=== PATIENT | female | born 1970 | race Caucasian/White ===

== ENCOUNTER 2016-10-17 00:28 | Emergency (ER) | payer SELFPAY ==
[~2016-10-17] VITALS: Ht 166.4 cm; Wt 69.1 kg
[~2016-10-17 00:28] MED LIST: FLUT0.0529
[2016-10-17 00:34] VITALS: TEMP 36.8; Ht 166.4 cm; Wt 69.1 kg
[2016-10-17] MEDS ORDERED: KETOROLAC TROMETHAMINE 60 MG/2 ML VIAL IM STA (00:47)
--- NOTE | 2016-10-17 00:49 | EMERGENCY ROOM VISIT NOTE ---
History Report prepared by [place]: Cal Kelly Under the Supervision of: Dr. Sheila Marie D.O. First contact with patient: 00:37 Chief Complaint: ANKLE PAIN Stated Complaint: SEVERE PAIN IN LEFT ANKLE History of Present Illness The patient is a 46 year old female who presents to the Emergency Room with complaints of shooting, waxing/waning left ankle pain that began 1 month ago. The patient rates her pain a 10/10 in severity. The patient has had multiple past injuries to her left ankle over the years. Over the past month, she has been experiencing this pain shooting up her leg. She denies any pain in her calf , foot, or leg, her pain is just in her ankle. She states that the pain changes position day to day. She notes that the pain worsens the longer she stands on it. When she got home from work today, she began to use crutches, and she took a Naproxen. She denies any recent trauma to the area. She denies any fevers or abdominal pain. Source of History: patient Onset: 1 month ago Position: ankle (left) Symptom Intensity: 10/10 Quality: other (shooting) Timing: waxes/wanes Modifying Factors (Worsening): exertion Associated Symptoms: No abdominal pain, No fevers Note: She denies any other pain in her leg. Review of Systems See HPI for pertinent positives & negatives. A total of 10 systems reviewed and were otherwise negative. Past Medical & Surgical Medical Problems: (1) Bilateral tubal ligation (2) DRUG DEPEND NOS-EPISODIC (3) DRUG WITHDRAWAL (4) FAMILY HX-MALIGNANCY NOS (5) History of - tubal ligation (6) TOBACCO USE DISORDER (7) Tonsillectomy (8) TUBAL LIGATION STATUS Family History Cancer Social History Smoking Status: Current Every Day Smoker Drug Use: cocaine Marital Status: single Occupation Status: employed Current/Historical Medications No Active Prescriptions or Reported Meds Allergies Coded Allergies: Penicillins (Unverified Allergy, Unknown, HIVES, 10/17/16) Physical Exam Vital Signs Date Time Temp Pulse Resp B/P Pulse Ox O2 Delivery O2 Flow Rate FiO2 10/17/16 02:20 98 20 120/68 97 Room Air 10/17/16 00:34 36.8 110 20 122/75 95 Room Air Physical Exam Heart: Regular rate and rhythm. There is a normal S1 and S2 with no murmurs, clicks, or gallops appreciated. Lungs: Clear to auscultation bilaterally with no wheezes, rales, or rhonchi. Abdomen: Soft, completely nontender, nondistended, with good bowel sounds. There are no palpable pulsatile masses or hepatosplenomegaly. There is no guarding, rigidity, or rebound noted. Extremities: No evidence of cyanosis, clubbing, or edema. There are easily palpable peripheral pulses. Pain with palpation of the Achilles tendon on the left lower extremity. However there is no pain in that area with dorsiflexion and plantar flexion of the foot. Skin: warm and dry with good turgor and no rashes. Medical Decision & Procedures ER Provider Diagnostic Interpretation: X-ray results as stated below per interpretation by me: Left Ankle X-Ray: No obvious fracture. No joint effusion. Medications Administered Medications (Trade) Dose Ordered Sig/Odalys Route Start Time Stop Time Status Last Admin Dose Admin Ketorolac Tromethamine (Toradol Inj) 60 mg NOW STAT IM 10/17/16 00:47 10/17/16 00:48 DC 10/17/16 01:22 60 MG Oxycodone/ Acetaminophen (Percocet 5-325mg Tab) 1 tab NOW ONCE PO 10/17/16 01:00 10/17/16 01:01 DC 10/17/16 01:21 1 TAB Procedure Toradol Inj 60 mg IM Oxycodone/ Acetaminophen 1 tab PO ED Course 0037: Past medical records reviewed. The patient was evaluated in room A9. A complete history and physical exam was performed. The patient went for a plain film of the left ankle which was unremarkable. 0047: Ordered Toradol Inj 60 mg IM 0100: Ordered Oxycodone/ Acetaminophen 1 tab PO 0200: Upon reevaluation, the patient is resting. I discussed findings with her. She verbalized agreement of the treatment plan. She was discharged home. Medical Decision The patient is a 46 year old female who presents to the ED with ankle pain. Differential diagnosis includes gout, ankle sprain, arthritis, fracture, and septic joint. There is no erythema or edema surrounding the ankle. It was not warm to touch. The patient had some mild discomfort with palpation over the Achilles. She had no discomfort with plantar flexion or dorsiflexion of the foot. X-ray was unremarkable. She had significant relief of her pain after receiving Toradol and 1 Percocet. I've asked the patient to keep her foot elevated. She can use crutches to limit weightbearing. Impression Primary Impression: Achilles tendon pain Scribe Attestation The scribe's documentation has been prepared under my direction and personally reviewed by me in its entirety. I confirm that the note above accurately reflects all work, treatment, procedures, and medical decision making performed by me. Departure Information Dispostion Home / Self-Care Prescriptions No Active Prescriptions or Reported Meds Referrals No Doctor, Assigned (PCP) Forms HOME CARE DOCUMENTATION FORM, IMPORTANT VISIT INFORMATION Patient Instructions My [facility] Additional Instructions Rest with the left foot elevated. Use crutches when up and about tylenol or ibuprofen for pain Follow up with [facility] if pain persists
[2016-10-17] MEDS ORDERED: OXYCODONE/ACETAMINOPHEN 5-325 TAB PO ONE (01:00)
[2016-10-17 02:20] VITALS: BP 120/68; PULSE 98; O2SAT 97
--- NOTE | 2016-10-17 07:57 | DIAGNOSTIC IMAGING REPORT ---
LEFT ANKLE MIN 3 VIEWS ROUTINE CLINICAL HISTORY: Left ankle pain. COMPARISON: None FINDINGS: Alignment of the left ankle is anatomic. There is no acute fracture. There is mild osteophytosis of the tibiotalar joint. Talar dome is intact. IMPRESSION: 1. No acute fracture or dislocation of the left ankle. 2. Mild tibiotalar joint osteoarthritis. Electronically signed by: Raul Quiles M.D. 10/17/2016 7:55 AM Dictated Date/Time: 10/17/2016 7:54 AM
== END 2016-10-17 02:24 | disposition home or self-care (01) ==
LOC: C.EDB 00:29 → C.EDA 02:24
DX: M76.62 Achilles tendinitis, left leg (principal); F17.200 Nicotine dependence, unspecified, uncomplicated; Z98.51 Tubal ligation status; Z98.890 Other specified postprocedural states; Z88.0 Allergy status to penicillin; Z80.9 Family history of malignant neoplasm, unspecified

== ENCOUNTER 2017-07-04 20:47 | Emergency (ER) | payer OTHER ==
[~2017-07-04] VITALS: Ht 166.4 cm; Wt 61.5 kg
[2017-07-04 20:56] VITALS: TEMP 36.7; Ht 166.4 cm; Wt 61.5 kg
--- NOTE | 2017-07-04 21:32 | EMERGENCY ROOM VISIT NOTE ---
ED Visit Note First contact with patient: 21:00 CHIEF COMPLAINT: Right forearm injury at work 2 hours ago HISTORY OF PRESENT ILLNESS: Patient is a [id number] 47-year-old white female who presents to emergency department for evaluation of pain in the right forearm. She accidentally struck it on a counter at work about 2 hours ago. She applied ice for a short period of time, but continued to work. She states that she was unable to lift a coffee pot, and had to drive over here using her left hand only. She notes pain in the dorsal aspect of the mid right forearm where she struck it on the countertop. She rates her discomfort an 8/10. Pain does not radiate. She denies any wrist or elbow pain. There is no numbness of the hand or weakness of the fingers. REVIEW OF SYSTEMS: Review of systems as per HPI. All other systems reviewed were negative. At least 6 systems reviewed. PMH: Electronic medical records are reviewed and summarized as above/below. See Problem List. SOCIAL HISTORY: Patient lives at home. PHYSICAL EXAM: Vital Signs: Reviewed Nurse's notes. CONSTITUTIONAL: Patient is a well-appearing 38-year-old white female who is awake and alert and didn't no acute distress. She is writing with her right arm, filling out her medical questionnaire. MUSCULOSKELETAL: Examination of the right forearm note a small soft tissue indentation in the dorsal aspect of the mid forearm, where the patient is tender to palpation. There is no significant soft tissue swelling, no ecchymosis. No fracture crepitus or deformity. The skin is intact. Flexion and extension of the fingers is intact. Wrist range of motion is full, elbow range of motion is full although patient has some discomfort with supination. Sensation is intact on the dorsum of the forearm and hand The fingers are warm and well perfused. EMERGENCY DEPARTMENT COURSE: An X-ray of the right forearm was negative for acute fracture or bony abnormality. There was a soft tissue foreign body noted , however on repeat examination, patient's skin is completely intact, and mechanism of injury today is not consistent with any type of skin or soft tissue injury. The patient cannot recall any event that could have led to a retained foreign body. She does not have any skin injury to suspect puncture or laceration. No signs of infection. She does have a tattoo in this region, unsure if this is related or not. Conservative care measures were discussed regarding her forearm contusion. She can return to normal activity as tolerated. Differential diagnoses entertained included fracture, soft tissue injury, contusion, among others. R FOREARM 2 VIEWS ROUTINE CLINICAL HISTORY: 47 years-old Female presenting with RIGHT, EVAL FX. TECHNIQUE: Frontal and lateral views of the right forearm are obtained. COMPARISON: Correlation made to plain radiographs of the right elbow from 2011. FINDINGS: Elbow joint and radiocarpal articulations grossly congruent. No acute fracture or malalignment. Ossific density along the cutis or subcutaneous tissue of the dorsum of the mid forearm noted. No associated soft tissue swelling. IMPRESSION: No acute osseous injury of the right forearm. Ossific density in the mid forearm along the dorsum within the scanner subcutaneous tissue. Correlate clinically to exclude retained foreign body. Medication reconciliation: I attest that I have personally reviewed the patient' s current medication list. Blood pressure screening : Patient was found to have normal blood pressure on screening and does not require follow-up. Problem List Medical Problems: (1) Achilles tendon pain Status: Resolved (2) Back strain Status: Resolved (3) Bilateral tubal ligation Status: Resolved (4) Contusion of foot Status: Resolved (5) DRUG DEPEND NOS-EPISODIC Status: Resolved (6) DRUG WITHDRAWAL Status: Resolved (7) Ear pain, right Status: Resolved (8) FAMILY HX-MALIGNANCY NOS Status: Chronic (9) TOBACCO USE DISORDER Status: Chronic (10) TUBAL LIGATION STATUS Status: Resolved Surgical Problems: (1) History of - tubal ligation Status: Resolved (2) Tonsillectomy Status: Resolved Current/Historical Medications No Active Prescriptions or Reported Meds Allergies Coded Allergies: Penicillins (Unverified Allergy, Unknown, HIVES, 10/17/16) Vital Signs Date Time Temp Pulse Resp B/P (MAP) Pulse Ox O2 Delivery O2 Flow Rate FiO2 07/04/17 20:56 36.7 90 18 112/67 97 Room Air Departure Information Impression Primary Impression: Contusion of forearm, right Additional Impression: Work related injury Prescriptions No Active Prescriptions or Reported Meds Referrals No Doctor, Assigned (PCP) [facility] Instructions [facility] Additional Instructions Ibuprofen(Motrin, Advil) may be used for fever or pain. Use 600mg every six hours as needed. Take with food. Avoid using more than 2400mg in a 24 hour period. Do not use 2400mg per day for more than three consecutive days without physician direction. Prolonged inappropriate use can lead to stomach upset or ulcers. This medication can be taken if you need to drive, work, or perform activities which may be dangerous when taking narcotic pain medication. (AND/OR) Acetaminophen(Tylenol) may be used for fever or pain. Use 1000mg every six hours as needed. Avoid using more than 3000mg in a 24 hour period. This medication can be taken if you need to drive, work, or perform activities which may be dangerous when taking narcotic pain medication. Ice compresses for 20 minutes at a time four times daily for 2-3 days. Rest and elevate your injury. May return to normal activity as your pain allows. Continue current medications. Followup with your workers compensation physician if no improvement in 5-7 days. Problem Qualifiers
--- NOTE | 2017-07-04 21:40 | DIAGNOSTIC IMAGING REPORT ---
R FOREARM 2 VIEWS ROUTINE CLINICAL HISTORY: 47 years-old Female presenting with RIGHT, EVAL FX. TECHNIQUE: Frontal and lateral views of the right forearm are obtained. COMPARISON: Correlation made to plain radiographs of the right elbow from 2011. FINDINGS: Elbow joint and radiocarpal articulations grossly congruent. No acute fracture or malalignment. Ossific density along the cutis or subcutaneous tissue of the dorsum of the mid forearm noted. No associated soft tissue swelling. IMPRESSION: No acute osseous injury of the right forearm. Ossific density in the mid forearm along the dorsum within the scanner subcutaneous tissue. Correlate clinically to exclude retained foreign body. Electronically signed by: Horace Zaldivar M.D. 07/04/2017 9:39 PM Dictated Date/Time: 07/04/2017 9:38 PM
[2017-07-04 22:06] VITALS: BP 122/77; PULSE 82; O2SAT 96
== END 2017-07-04 21:50 | disposition home or self-care (01) ==
LOC: C.EDB 20:47 → C.EDA 21:50
DX: S50.11XA Contusion of right forearm, initial encounter (principal); W22.8XXA Striking against or struck by other objects, initial encounter

== ENCOUNTER 2017-11-29 22:19 | Emergency (ER) | payer SELFPAY ==
[~2017-11-29] VITALS: Ht 166.4 cm; Wt 64.2 kg
[2017-11-29 22:22] VITALS: TEMP 36.5; Ht 166.4 cm; Wt 64.2 kg
--- NOTE | 2017-11-29 23:02 | EMERGENCY ROOM VISIT NOTE ---
ED Visit Note First contact with patient: 22:25 CHIEF COMPLAINT: Right shoulder pain HISTORY OF PRESENT ILLNESS: This 47-year-old female patient presents to the emergency department, ambulatory, complaining of pain in the right shoulder 1.5 weeks. The patient states she fell 1 and half weeks ago, and did not experience any pain immediately. She states she slipped and landed on her butt , however she placed her arm out which struck the ground. One day later, she began experiencing right shoulder pain. She states the pain has been progressively getting worse for the past week and a half. She has been taking 600 mg ibuprofen every 6 hours and using a heating pad without relief of her symptoms. She denies any previous injury to the shoulder. There is no limitation of motion of the arm because of the pain. The pain is moderate, constant and increases with motion of the hand and arm. The patient states the pain is sharp and 1/10. No previous significant previous shoulder disease or injury. No numbness or tingling. No neck or back pain. No chest pain or shortness of breath. No abdominal pain or nausea/vomiting. No cough. REVIEW OF SYSTEMS: A 6 system review of systems was performed with positives and pertinent negatives in the HPI. ALLERGIES: Penicillin MEDICATIONS: None PMH: None SOCIAL HISTORY: The patient lives locally with family. She denies drug, alcohol use. She admits to smoking 1 pack of cigarettes per day. PHYSICAL EXAM: Vital Signs: Reviewed nurse's notes, vital signs stable. GENERAL : This is a 47-year-old white female, in no acute distress, but appears to be in pain, well-developed, well-nourished. MUSCULOSKELETAL: There is no deformity in the contour of the right shoulder and there are no marcus deformities noted. There is no sulcus sign. There is no tenderness of the shoulder. The patient's range of motion is full. Supraspinatus strength 5/5. There is no clavicle tenderness. No tenderness of the humerus, elbow, wrist, or hand. Primary Health Organisation Manager strength 5 /5. Radial pulse 2+. Positive empty can test. NECK: No tenderness to palpation over the cervical spine. Supple, no lymphadenopathy. HEART: Regular rate and rhythm without murmurs gallops or rubs. LUNGS: Clear to auscultation bilaterally without wheezes, rales or rhonchi. No accessory muscle use. No retractions. NEURO: The patient is alert and oriented to person, place, and time. Normal sensation to light and sharp touch. Capillary refill less than 2 seconds. RADIOLOGY: R SHOULDER MIN 2 VIEWS ROUTINE CLINICAL HISTORY: 47 years-old Female presenting with right shoulder pain. TECHNIQUE: Internal rotation, external rotation, and Grashey views of the right shoulder were obtained. COMPARISON: Chest x-ray from 06/03/2009. FINDINGS: Acromioclavicular and glenohumeral joints congruent. No acute fracture or malalignment. No advanced degenerative change. No radiographic soft tissue abnormality. Right basilar opacity may be present versus overlapping soft tissue. IMPRESSION: 1. No acute osseous injury. Electronically signed by: Horace Zaldivar M.D. 11/29/2017 11:13 PM Dictated Date/Time: 11/29/2017 11:12 PM EMERGENCY DEPARTMENT COURSE: I examined the patient. An X-ray of the right shoulder was reviewed by myself and radiologist and shows no acute fracture or bony abnormality. The patient was given Voltaren gel for her pain and an arm sling for comfort. I encouraged her to follow-up with [facility] and discussed with her the likelihood that physical therapy could be beneficial. The patient verbalized understanding. Discharge instructions reviewed, patient was discharged home in good condition. I attest that I have personally reviewed the patient's current medication list. Patient was found to have normal blood pressure on screening and does not require follow-up. Etiologies such as soft tissue injury, fracture, dislocation, neurovascular compromise, compartment syndrome, as well as others were entertained. DIAGNOSIS: Shoulder strain The chart was completed utilizing [employer] Speech voice recognition software. Grammatical errors, random word insertions, pronoun errors, and incomplete sentences are an occasional consequence of this system due to software limitations, ambient noise, and hardware issues. Any formal questions or concerns about the content, text, or information contained within the body of this dictation should be directly addressed to the provider for clarification. Problem List Medical Problems: (1) Achilles tendon pain Status: Resolved (2) Back strain Status: Resolved (3) Bilateral tubal ligation Status: Resolved (4) Contusion of foot Status: Resolved (5) DRUG DEPEND NOS-EPISODIC Status: Resolved (6) DRUG WITHDRAWAL Status: Resolved (7) Ear pain, right Status: Resolved (8) FAMILY HX-MALIGNANCY NOS Status: Chronic (9) TOBACCO USE DISORDER Status: Chronic (10) TUBAL LIGATION STATUS Status: Resolved Surgical Problems: (1) History of - tubal ligation Status: Resolved (2) Tonsillectomy Status: Resolved Current/Historical Medications No Active Prescriptions or Reported Meds Allergies Coded Allergies: Penicillins (Unverified Allergy, Unknown, HIVES, 11/29/17) Vital Signs Date Time Temp Pulse Resp B/P (MAP) Pulse Ox O2 Delivery O2 Flow Rate FiO2 11/29/17 23:41 78 20 107/71 98 Room Air 11/29/17 22:22 36.5 85 18 118/71 97 Room Air Medications Administered Medications (Trade) Dose Ordered Sig/Odalys Route Start Time Stop Time Status Last Admin Dose Admin Diclofenac Sodium (Voltaren 1% Top Gel) 1 appln NOW STAT EXT 11/29/17 23:21 11/29/17 23:22 DC 11/29/17 23:38 1 APPLN Departure Information Impression Primary Impression: Right shoulder strain Dispostion Home / Self-Care Condition GOOD Prescriptions No Active Prescriptions or Reported Meds Referrals No Doctor, Assigned (PCP) [facility] Patient Instructions ED Sprain Shoulder, My [facility] Additional Instructions You have been treated in the Emergency Department for Shoulder Pain. Use the Voltaren gel up to 4x per day for pain. For pain control, you can use the following exew-qfs-edmldfk medicines (if >12 yo): Ibuprofen(Motrin, Advil) may be used for fever or pain. Use 600mg every six hours as needed. Take with food. Avoid using more than 2400mg in a 24 hour period. Do not use 2400mg per day for more than three consecutive days without physician direction. Prolonged inappropriate use can lead to stomach upset or ulcers. (AND/OR) Acetaminophen(Tylenol) may be used for fever or pain. Use 1000mg every six hours as needed. Avoid using more than 3000mg in a 24 hour period. If this is a recent injury (<24 hrs), ice can be applied to the area of pain for the first 3 days to help decrease pain and inflammation. You have been provided the number for an Orthopaedic Surgeon. You should call this number if no improvement with home exercises and anti-inflammatory medications to establish a follow-up visit from today's Emergency Department visit. Wear the shoulder sling for comfort. Remove your arm from the sling several times per day to keep the muscles and joint loose. Return to the Emergency Department if your current symptoms worsen despite treatment course outlined above, or if you develop any of the following symptoms : intractable pain despite aforementioned treatment course or new onset of numbness or tingling of the arm. Problem Qualifiers Primary Impression: Right shoulder strain Encounter type: initial encounter Qualified Codes: S46.911A - Strain of unspecified muscle, fascia and tendon at shoulder and upper arm level, right arm , initial encounter
--- NOTE | 2017-11-29 23:15 | DIAGNOSTIC IMAGING REPORT ---
R SHOULDER MIN 2 VIEWS ROUTINE CLINICAL HISTORY: 47 years-old Female presenting with right shoulder pain. TECHNIQUE: Internal rotation, external rotation, and Grashey views of the right shoulder were obtained. COMPARISON: Chest x-ray from 06/03/2009. FINDINGS: Acromioclavicular and glenohumeral joints congruent. No acute fracture or malalignment. No advanced degenerative change. No radiographic soft tissue abnormality. Right basilar opacity may be present versus overlapping soft tissue. IMPRESSION: 1. No acute osseous injury. Electronically signed by: Horace Zaldivar M.D. 11/29/2017 11:13 PM Dictated Date/Time: 11/29/2017 11:12 PM
[2017-11-29] MEDS ORDERED: DICLOFENAC SOD 1% GEL 100 GM TUBE EXT STA (23:21)
[2017-11-29 23:41] VITALS: BP 107/71; PULSE 78; O2SAT 98
== END 2017-11-30 00:12 | disposition home or self-care (01) ==
LOC: C.EDB 22:20
DX: S46.911A Strain of unspecified muscle, fascia and tendon at shoulder and upper arm level, right arm, initial encounter (principal); W01.0XXA Fall on same level from slipping, tripping and stumbling without subsequent striking against object, initial encounter; Z88.0 Allergy status to penicillin; F17.210 Nicotine dependence, cigarettes, uncomplicated